=== PATIENT | female | born 1945 | race Caucasian/White ===

== ENCOUNTER 2019-08-01 00:51 | Observation (INO) | payer MEDICARE ==
[~2019-08-01] VITALS: Ht 162.6 cm; Wt 83.2 kg
[2019-08-01] MEDS ORDERED: DEXTROSE 5%-LACTATED RINGERS 1,000 ML IV ONE (01:09)
[2019-08-01 01:45] LABS: BASOPHILS % (AUTO) 0.3 % (0.0-5.0); EOSINOPHILS % (AUTO) 1.5 % (0.0-8.0); HEMATOCRIT 44.4 % (36-48); LYMPHOCYTES % (AUTO) 19.4 % (21.0-51.0); MEAN CORPUSCULAR HEMOGLOBIN 30.6 pg (27.0-33.0); MEAN CORPUSCULAR HGB CONC 32.2 g/dL (32.0-36.0); MEAN CORPUSCULAR VOLUME 94.9 fL (79-99); MONOCYTES % (AUTO) 7.6 % (3.0-13.0); NEUTROPHILS % (AUTO) 70.8 % (40.0-77.0); PLATELET COUNT (AUTO) 186 K/uL (130-400); RED BLOOD CELL COUNT(AUTO) 4.68 MIL/uL (4.00-5.50); RED CELL DISTRIBUTION WIDTH 14.6 % (11.0-15.5); WHITE BLOOD COUNT (AUTO) 10.2 K/uL (4.8-10.8)
[2019-08-01] MEDS ORDERED: DEXTROSE 50%-WATER 50 ML DISP.SYRIN IV ONE (01:53)
[2019-08-01 01:54] LABS: POTASSIUM 3.8 mmol/L (3.5-5.1)
[2019-08-01 02:07] LABS: ALBUMIN 3.5 g/dL (3.5-5.0); BILIRUBIN,TOTAL 0.4 mg/dL (0.2-1.0); THYROID STIMULATING HORMONE 14.92 uIU/mL (0.36-3.74); TOTAL PROTEIN, SERUM 7.4 g/dL (6.0-8.3)
[2019-08-01 02:19] LABS: APPEARANCE,URINE Clear (CLEAR); BILIRUBIN,URINE Negative (NEGATIVE); COLOR,URINE Yellow (YELLOW); GLUCOSE, URINE (UA) 250 mg/dL (NEGATIVE); KETONES,URINE Negative (NEGATIVE); LEUKOCYTE ESTERASE ,URINE Negative (NEGATIVE); NITRATE,URINE Negative (NEGATIVE); OCCULT BLOOD,URINE Negative (NEGATIVE); PROTEIN,URINE Negative (NEGATIVE)
[2019-08-01 02:36] LABS: BACTERIA,URINE Few /HPF (None Seen); RBC,URINE 0-1 /HPF (0-1); SQUAMOUS EPITHELIAL CELL,UR 0-2 /HPF (0-2)
[2019-08-01] MEDS ORDERED: DEXTROSE 5%-LACTATED RINGERS 1,000 ML IV SCH (04:30)
[2019-08-01] MEDS ORDERED: DEXTROSE 50%-WATER 50 ML DISP.SYRIN IV PRN (04:30)
[2019-08-01] MEDS ORDERED: GLUCAGON 1MG KIT 1 MG ML IM PRN (04:30)
[2019-08-01 05:20] LABS: HEMOGLOBIN A1C 9.1 % (4.0-6.0)
[2019-08-01 08:17] VITALS: BP 134/70
[2019-08-01] MEDS: FAMOTIDINE 20MG TAB 20 MG TAB PO SCH ×2 (09:00→21:22)
--- NOTE | 2019-08-01 09:32 | NUR ---
CHART REVIEWED DISCUSSED WITH STATION ATTENDANT /RN, SOME MEDS CHANGES MADE BY STATION ATTENDANT. [facility] FORM GENERATED
[2019-08-01 10:51] VITALS: BP 124/69
[2019-08-01 15:44] VITALS: BP 147/77
[2019-08-01 19:00] VITALS: BP 130/76
[2019-08-01 23:00] VITALS: BP 113/70
[2019-08-02 03:00] VITALS: BP 102/66
[2019-08-02 08:00] VITALS: BP 121/91
[2019-08-02] MEDS: FAMOTIDINE 20MG TAB 20 MG TAB PO SCH ×2 (08:17→10:24)
[2019-08-02] MEDS ORDERED: ATOR40TA71 PO (11:29)
[2019-08-02] MEDS ORDERED: AMLO2.5T2 PO (11:29)
[2019-08-02] MEDS ORDERED: INSU3INS5 SQ (11:29)
[2019-08-02] MEDS ORDERED: LISI10TA7 PO (11:29)
[2019-08-02] MEDS ORDERED: LEVO150 PO ×2 (11:29→12:31)
[2019-08-02] MEDS ORDERED: OXYB5TAB15 PO (11:29)
[2019-08-02] MEDS ORDERED: BUPR150T3 PO (11:29)
[2019-08-02 11:47] VITALS: BP 127/80
[2019-08-02] MEDS ORDERED: LEVOTHYROXINE 25 MCG TABLET PO SCH (12:15)
[2019-08-02] MEDS ORDERED: LEVOTHYROXINE 150 MCG TABLET PO SCH (12:15)
[2019-08-02] MEDS ORDERED: METF-446 PO (12:31)
[2019-08-02] MEDS ORDERED: OXYBUTYNIN CHLORIDE 5 MG TABLET PO SCH (21:00)
[2019-08-03] MEDS ORDERED: LISINOPRIL 10 MG TABLET PO SCH (09:00)
[2019-08-03] MEDS ORDERED: ATORVASTATIN CALCIUM 40 MG TABLET PO SCH (09:00)
[2019-08-03] MEDS ORDERED: AMLODIPINE BESYLATE 2.5 MG TAB PO SCH (09:00)
[2019-08-03] MEDS ORDERED: BUPROPION HCL 150 MG TABLET.SA PO SCH (09:00)
== END 2019-08-02 16:00 | disposition home or self-care (01) ==
LOC: EDH 00:51 → EDHIP 04:28 → 4CH 05:48
PROVIDERS: ADMIT Internal Medicine; ATTEND Internal Medicine
DX: E11.649 Type 2 diabetes mellitus with hypoglycemia without coma (principal); I10 Essential (primary) hypertension; E78.5 Hyperlipidemia, unspecified; F17.210 Nicotine dependence, cigarettes, uncomplicated; E89.0 Postprocedural hypothyroidism; Z79.84 Long term (current) use of oral hypoglycemic drugs
CPT/HCPCS: 36415 ×2; 80053; 80061; 81001; 82948 ×10; 83036; 84436; 84443; 84480; 84484; 85025; 99284; G0378 ×21; J3490; J7070

== ENCOUNTER 2020-06-03 11:43 | Emergency (ER) | payer MEDICARE ==
[~2020-06-03 11:43] MED LIST: AMLO2.5T2 PO; ATOR40TA71 PO; BUPR150T3 PO; LEVO150 PO; LISI10TA7 PO; METF-446 PO; OXYB5TAB15 PO
[2020-06-03] MEDS ORDERED: ACETAMINOPHEN-CODEINE 300/30MG TAB ONE (12:42)
== END 2020-06-03 13:35 | disposition home or self-care (01) ==
LOC: EDH 11:43
DX: S52.502A Unspecified fracture of the lower end of left radius, initial encounter for closed fracture (principal); E11.9 Type 2 diabetes mellitus without complications; I10 Essential (primary) hypertension; W01.0XXA Fall on same level from slipping, tripping and stumbling without subsequent striking against object, initial encounter; Y93.89 Activity, other specified; Y92.098 Other place in other non-institutional residence as the place of occurrence of the external cause; Y99.8 Other external cause status
CPT/HCPCS: 29125; 73110

== ENCOUNTER 2022-09-16 10:23 | Emergency (ER) | payer MEDICARE ==
[~2022-09-16] VITALS: Ht 162.6 cm; Wt 69.9 kg
[~2022-09-16 10:23] MED LIST changes: +LISI10TA24 PO; -LISI10TA7 PO
[2022-09-16] MEDS ORDERED: 0.9%NACL 1000ML 1,000 ML IV ONE ×2 (10:30→11:00)
[2022-09-16] MEDS ORDERED: FLUCONAZOLE 100 MG TAB PO SCH (10:30)
[2022-09-16 11:01] LABS: BASOPHILS % (AUTO) 0.7 % (0.0-5.0); EOSINOPHILS % (AUTO) 1.5 % (0.0-8.0); HEMATOCRIT 44.5 % (36-48); LYMPHOCYTES % (AUTO) 39.1 % (21.0-51.0); MEAN CORPUSCULAR HEMOGLOBIN 30.7 pg (27.0-33.0); MEAN CORPUSCULAR HGB CONC 33.5 g/dL (32.0-36.0); MEAN CORPUSCULAR VOLUME 91.8 fL (79-99); MONOCYTES % (AUTO) 6.2 % (3.0-13.0); NEUTROPHILS % (AUTO) 52.1 % (40.0-77.0); PLATELET COUNT (AUTO) 167 K/uL (130-400); RED BLOOD CELL COUNT(AUTO) 4.85 MIL/uL (4.00-5.50); RED CELL DISTRIBUTION WIDTH 13.4 % (11.0-15.5); WHITE BLOOD COUNT (AUTO) 7.3 K/uL (4.8-10.8)
[2022-09-16 11:03] LABS: APPEARANCE,URINE CLEAR (CLEAR); BILIRUBIN,URINE NEGATIVE (NEGATIVE); COLOR,URINE LIGHT-YELLOW (YELLOW); GLUCOSE, URINE (UA) >=1000 mg/dL (NEGATIVE); KETONES,URINE NEGATIVE (NEGATIVE); LEUKOCYTE ESTERASE ,URINE 75 Leu/uL (NEGATIVE); NITRATE,URINE NEGATIVE (NEGATIVE); PROTEIN,URINE NEGATIVE (NEGATIVE); UROBILINOGEN,URINE 0.2 mg/dL (0.2-1.0)
[2022-09-16 11:07] LABS: SQUAMOUS EPITHELIAL CELL,UR RARE /HPF (0-2)
[2022-09-16 11:11] LABS: ALBUMIN 3.6 g/dL (3.5-5.0); CREATININE 0.7 mg/dL (0.5-1.5); POTASSIUM 4.3 mmol/L (3.5-5.1)
[2022-09-16 11:13] LABS: TOTAL PROTEIN, SERUM 6.9 g/dL (6.0-8.3)
[2022-09-16] MEDS ORDERED: FLUC150T PO (13:22)
[2022-09-16] MEDS ORDERED: SULF1TAB42 PO (13:22)
[2022-09-16] MEDS ORDERED: CEFTRIAXONE 1G VIAL IVP ONE (13:30)
[2022-09-16 14:07] VITALS: BP 155/81
== END 2022-09-16 14:08 | disposition home or self-care (01) ==
LOC: EDH 10:23
DX: N39.0 Urinary tract infection, site not specified (principal); B37.9 Candidiasis, unspecified; E86.0 Dehydration; E11.65 Type 2 diabetes mellitus with hyperglycemia
CPT/HCPCS: 99284; 96374; 96361; 84484; 80053; 85025; 87088; 82948 ×2; 83605; 81001; 36415; 93005; J7030; J0696